=== PATIENT | male | born 1960 | race Caucasian/White ===

== ENCOUNTER 2016-10-10 21:47 | Emergency (ER) | payer MEDICAID, OTHER | END 2016-10-10 22:11 | disposition home or self-care (01) | LOC: CED 21:47 | DX: Z53.29 Procedure and treatment not carried out because of patient's decision for other reasons (principal) ==

== ENCOUNTER → 2016-11-19 | Outpatient (CLI) | payer MEDICAID | LOC: CIMAGING 15:54 | PROVIDERS: ATTEND Internal Medicine Nephrology | DX: N18.3 Chronic kidney disease, stage 3 (moderate) (principal); E66.9 Obesity, unspecified | CPT/HCPCS: 76770-PO; 80069-PO; 82310-PO; 82565-PO; 83970-PO; 84100-PO; 85025-PO ==

== ENCOUNTER 2017-02-12 17:01 | Emergency (ER) | payer MEDICAID ==
[2017-02-12] MEDS ORDERED: NS 500 ML IV ONE (17:24)
--- NOTE | 2017-02-12 17:39 | EDPHY ---
H & P Stated Complaint: sent by primary for lithium level blood draw. Time Seen by Provider: 02/12/17 17:23 HPI/ROS: CHIEF COMPLAINT: Twitching, concern for lithium toxicity HISTORY OF PRESENT ILLNESS: This is a 56-year-old gentleman with long history of bipolar disorder who is been on lithium for 20 years. Patient's current dosage is 900 mg at bedtime. Patient has recently developed worsening renal failure and is currently being seen by Dr. Downs. Secondary to worsening pedal edema patient's diuretics have gradually been increased. Patient is currently taking 80 mg twice daily of Lasix as well as a new twice weekly diuretic, which was started last week, in response to a creatinine of 3.2. Patient reports feeling slightly twitchy yesterday and today. He denies any seizure, altered mental status, headaches, visual difficulties, nausea, or vomiting. He denies any chest pain or shortness of breath. He denies any alcohol intake. He does have a prior history of developing lithium toxicity and states that this feels somewhat similar. No fever, chills, chest pain, shortness of breath, palpitations, vomiting, diarrhea, urinary complaints, headache, lightheadedness. REVIEW OF SYSTEMS: Aside from elements discussed in the HPI, a comprehensive 10-point review of systems was reviewed and is negative. PAST MEDICAL HISTORY: Bipolar disorder, renal failure. SOCIAL HISTORY: Retired respiratory therapist. Nonsmoker, rare alcohol use, denies illicit drugs. VITAL SIGNS Reviewed by me. GENERAL: Pleasant, conversant, no evidence of confusion. No respiratory distress. HEENT: Atraumatic. Eyes: No icterus, no injection. No nystagmus. No icterus. Mouth: Slightly dry mucous membranes. No erythema or lesions. Neck: supple with no adenopathy. LUNGS: Clear to auscultation bilaterally, no wheezes, rhonchi or rales. CARDIAC: Regular rate and rhythm, no rubs, murmurs or gallops. ABDOMEN: obese, Soft, nontender, nondistended, bowel sounds normal. BACK: No CVA tenderness. EXTREMITIES: No trauma. 2+ pitting edema at the ankles. Range of motion is normal throughout. NEURO: Alert and oriented, conversant, grossly nonfocal exam, no tremors noted. SKIN: Warm and dry, no rash. PSYCHIATRIC: Normal mentation, no agitation. - Medical/Surgical History Hx Asthma: No Hx Chronic Respiratory Disease: No Hx Diabetes: No Hx Cardiac Disease: No Hx Renal Disease: No Hx Cirrhosis: No Hx Alcoholism: No Hx HIV/AIDS: No Hx Splenectomy or Spleen Trauma: No Other PMH: Bowel perferation, right hip replacement, obesity, bipolar disorder Constitutional: Initial Vital Signs Temperature (C) 36.8 C 02/12/17 17:06 Heart Rate 70 02/12/17 17:06 Respiratory Rate 16 02/12/17 17:06 Blood Pressure 103/68 02/12/17 17:06 O2 Sat (%) 92 02/12/17 17:06 O2 Delivery Mode Room Air Allergies/Adverse Reactions: No Known Allergies Allergy (Verified 10/10/16 22:01) Home Medications: Medication Instructions Recorded Aspirin EC [Aspirin EC 81 mg (OTC)] 81 mg PO HS 10/09/13 Carvedilol [Coreg] 6.25 mg PO BID 10/09/13 Furosemide [Lasix] 40 mg PO DAILY 10/09/13 Lisinopril [Zestril 20 mg (RX)] 20 mg PO BID 10/09/13 Lybrook Carbonate ER [Lithobid 300 1,200 mg PO HS 10/09/13 mg (RX)] Multivit-Minerals/FA/Lycopene [One 1 each PO DAILY 10/09/13 Daily For Men Tablet] Spironolactone [Aldactone 25 MG 25 mg PO BID 10/09/13 (RX)] Vitamin B Complex Vit C No.4 450 mg PO DAILY 10/09/13 [Super B Complex] Medical Decision Making ED Course/Re-evaluation: Patient IV placed and received 500 cc of normal saline. Creatinine is 3.0, decreased from 3.2. Lybrook was 1.4. Patient's course was discussed with Dr. Mendoza, on-call for in [facility]. Plan to discharge the patient after receiving a L of normal saline. Patient will skip his dose tonight of lithium and have repeat levels checked tomorrow. At discharge the patient reports feeling improved. He has occasional myoclonic jerks but is not tremorous. He has no nausea or vomiting. He understands the importance of remaining hydrated, and will contact Dr. Downs in the morning for re-examination and repeat laboratory evaluation. Differential Diagnosis: Differential diagnoses for the patient's symptom complex was considered including but not limited to lithium toxicity, dehydration, renal insufficiency , medication effect, anxiety. - Data Points Laboratory Results: Laboratory Results 02/12/17 17:50 02/12/17 17:50 02/12/17 02/12/17 17:50 17:50 WBC 14.75 10^3/uL H 10^3/uL (3.80-9.50) RBC 4.12 10^6/uL L 10^6/uL (4.40-6.38) Hgb 12.4 g/dL L g/dL (13.7-17.5) Hct 37.6 % L % (40.0-51.0) MCV 91.3 fL fL (81.5-99.8) MCH 30.1 pg pg (27.9-34.1) MCHC 33.0 g/dL g/dL (32.4-36.7) RDW 13.7 % % (11.5-15.2) Plt Count 289 10^3/uL 10^3/uL (150-400) MPV 10.7 fL fL (8.7-11.7) Neut % (Auto) 74.9 % H % (39.3-74.2) Lymph % (Auto) 13.8 % L % (15.0-45.0) Rosebud % (Auto) 6.8 % % (4.5-13.0) Eos % (Auto) 3.1 % % (0.6-7.6) Baso % (Auto) 0.7 % % (0.3-1.7) Nucleat RBC Rel Count 0.0 % % (0.0-0.2) Absolute Neuts (auto) 11.04 10^3/uL H 10^3/uL (1.70-6.50) Absolute Lymphs (auto) 2.03 10^3/uL 10^3/uL (1.00-3.00) Absolute Monos (auto) 1.01 10^3/uL H 10^3/uL (0.30-0.80) Absolute Eos (auto) 0.46 10^3/uL H 10^3/uL (0.03-0.40) Absolute Basos (auto) 0.11 10^3/uL H 10^3/uL (0.02-0.10) Absolute Nucleated RBC 0.00 10^3/uL 10^3/uL (0-0.01) Immature Gran % 0.7 % % (0.0-1.1) Immature Gran # 0.10 10^3/uL 10^3/uL (0.00-0.10) Sodium 141 mEq/L mEq/L (134-144) Potassium 4.2 mEq/L mEq/L (3.5-5.2) Chloride 109 mEq/L mEq/L (97-110) Carbon Dioxide 19 mEq/l L mEq/l (22-31) Anion Gap 13 mEq/L mEq/L (8-16) BUN 58 mg/dL H mg/dL (7-23) Creatinine 3.0 mg/dL H mg/dL (0.7-1.3) Estimated GFR 22 Glucose 113 mg/dL H mg/dL (70-100) Calcium 10.1 mg/dL mg/dL (8.5-10.4) Lybrook 1.6 mEq/L H mEq/L (0.6-1.2) Medications Given: Discontinued Medications Sodium Chloride (Ns) 500 mls @ 1,000 mls/hr IV ONCE ONE PRN Reason: Protocol Stop: 02/12/17 17:53 Last Admin: 02/12/17 17:50 Dose: 500 mls Sodium Chloride (Ns) 1,000 mls @ 0 mls/hr IV ONCE ONE PRN Reason: Wide Open Stop: 02/12/17 18:49 Last Admin: 02/12/17 18:49 Dose: 1,000 mls Departure - Departure Disposition: Home, Routine, Self-Care Clinical Impression: Renal insufficiency Lybrook toxicity Qualifiers: Encounter type: initial encounter Injury intent: accidental or unintentional Qualified Code(s): T56.891A - Toxic effect of other metals, accidental ( unintentional), initial encounter Condition: Good Instructions: Lybrook (By mouth), Lybrook Toxicity (ED) Additional Instructions: Please stay well hydrated, with plenty of fluid. Do not take your lithium tonight. Please discussed with Dr. Downs and have additional levels checked tomorrow before restarting your lithium. Return to the emergency department or seek care urgently if you have worsening symptoms of lithium toxicity, especially if he developed confusion, difficulty walking, visible tremors, vomiting, diarrhea, abdominal pain. Referrals: Tonny Downs MD [Primary Care Provider] - As per Instructions
[2017-02-12 18:08] LABS: % IMMATURE GRANULYOCYTES 0.7 % (0.0-1.1); ADD DIFF? NO; ADD MORPH? NO; ADD SCAN? NO; ATYPICAL LYMPHOCYTE FLAG 0 (0-99); FRAGMENT RBC FLAG 0 (0-99); HEMATOCRIT 37.6 % (40.0-51.0); HEMOGLOBIN 12.4 g/dL (13.7-17.5); LEFT SHIFT FLG 0 (0-99); LIPEMIA HEMOLYSIS FLAG 80 (0-99); MEAN CELL HEMOGLOBIN 30.1 pg (27.9-34.1); MEAN CELL VOLUME 91.3 fL (81.5-99.8); MEAN PLATELET VOLUME 10.7 fL (8.7-11.7); PLATELET CLUMPS FLAG 10 (0-99); PLATELET COUNT 289 10^3/uL (150-400); RED BLOOD CELL COUNT 4.12 10^6/uL (4.40-6.38); RED CELL DISTRIBUTION WIDTH 13.7 % (11.5-15.2)
[2017-02-12 18:15] LABS: ANION GAP 13 mEq/L (8-16); CALCIUM 10.1 mg/dL (8.5-10.4); CARBON DIOXIDE 19 mEq/l (22-31); CHLORIDE 109 mEq/L (97-110); GLOMERULAR FILTRATION RATE 22; GLUCOSE 113 mg/dL (70-100); POTASSIUM 4.2 mEq/L (3.5-5.2); SODIUM 141 mEq/L (134-144)
[2017-02-12 18:33] LABS: LITHIUM 1.6 mEq/L (0.6-1.2)
[2017-02-12] MEDS ORDERED: NS 1,000 ML IV ONE (18:48)
[2017-02-12 18:54] VITALS: PULSE 54; RESP 18
[2017-02-12 19:52] VITALS: O2SAT 94
[2017-02-12 20:02] VITALS: BP 132/68; TEMP 98.4
== END 2017-02-12 20:03 | disposition home or self-care (01) ==
LOC: CED 17:01
DX: N28.9 Disorder of kidney and ureter, unspecified (principal); T56.891A Toxic effect of other metals, accidental (unintentional), initial encounter; E86.9 Volume depletion, unspecified; Z79.82 Long term (current) use of aspirin
CPT/HCPCS: 80048-PO; 85025-PO

== ENCOUNTER → 2017-06-05 | Outpatient (CLI) | payer MEDICAID ==
[2017-06-05 13:07] LABS: % IMMATURE GRANULYOCYTES 0.3 % (0.0-1.1); ABSOLUTE IMMATURE GRANULOCYTES 0.03 10^3/uL (0.00-0.10); ADD DIFF? NO; ADD MORPH? NO; ADD SCAN? NO; ATYPICAL LYMPHOCYTE FLAG 0 (0-99); FRAGMENT RBC FLAG 0 (0-99); HEMATOCRIT 36.3 % (40.0-51.0); HEMOGLOBIN 12.3 g/dL (13.7-17.5); LEFT SHIFT FLG 0 (0-99); LIPEMIA HEMOLYSIS FLAG 90 (0-99); MEAN CELL HEMOGLOBIN CONCENTR. 33.9 g/dL (32.4-36.7); MEAN CELL VOLUME 88.5 fL (81.5-99.8); MEAN PLATELET VOLUME 10.5 fL (8.7-11.7); PLATELET CLUMPS FLAG 0 (0-99); PLATELET COUNT 249 10^3/uL (150-400); RED CELL DISTRIBUTION WIDTH 13.6 % (11.5-15.2)
[2017-06-05 13:33] LABS: CALCIUM 9.9 mg/dL (8.5-10.4); CREATININE 2.5 mg/dL (0.7-1.3); POTASSIUM 4.4 mEq/L (3.5-5.2)
== END ==
LOC: CIMAGING 12:32
DX: Z09 Encounter for follow-up examination after completed treatment for conditions other than malignant neoplasm (principal); Z96.641 Presence of right artificial hip joint
CPT/HCPCS: 73502-PO; 80069-PO; 82310-PO; 82565-PO; 83970-PO; 84100-PO; 85025-PO